=== PATIENT | male | born 1990 | race Asian ===

== ENCOUNTER 2018-07-03 20:45 | Emergency (ER) | payer OTHER ==
[2018-07-03] MEDS ORDERED: DEXAMETHASONE 10 MG/ML VIAL PO STA (21:00)
--- NOTE | 2018-07-03 21:02 | ED Physician Documentation ---
History of Present Illness - Stated complaint Stated Complaint: FEVER/HEADACHE - Chief complaint Chief Complaint: Neuro - History obtained from History obtained from: Patient - History of Present Illness Timing: Today - Additonal information Additional information: 28-year-old male in his usual state of health awoke this morning with a headache and developed fever and chills associated with this later in the day. He subsequently has developed some nausea he has not developed a cough. He does have generalized aches and pains as well. The last time he felt like this it was the flu. He has been around a number of families that have been ill with similar symptoms. Review of Systems Constitutional: reports: Fever, Chills, Myalgias, Fatigue Eyes: denies: Decreased vision Ears: denies: Ear pain Nose: denies: Rhinorrhea / runny nose, Congestion Throat: denies: Sore throat Cardiac: denies: Chest pain / pressure, Palpitations Respiratory: denies: Dyspnea, Cough GI: reports: Nausea. denies: Abdominal Pain, Vomiting, Constipation, Diarrhea : denies: Dysuria, Frequency Skin: denies: Rash Musculoskeletal: denies: Neck pain, Back pain, Extremity pain Neurologic: denies: Generalized weakness, Focal weakness, Numbness PD PAST MEDICAL HISTORY - Present Medications Home Medications: Ambulatory Orders Medication Instructions Recorded Confirmed No Known Home Medications 07/03/18 07/03/18 - Allergies Allergies/Adverse Reactions: Allergies Allergy/AdvReac Type Severity Reaction Status Date / Time No Known Drug Allergies Allergy Verified 07/03/18 20:52 PD ED PE NORMAL - Vitals Vital signs reviewed: Yes (febrile ) - HEENT HEENT: Atraumatic, PERRL, EOMI, Ears normal, Moist mucous membranes, Pharynx benign, Dentition benign - Neck Neck: Supple, no meningeal sign, No bony TTP - Cardiac Cardiac: RRR, No murmur - Respiratory Respiratory: No respiratory distress, Clear bilaterally - Abdomen Abdomen: Soft, Non tender - Back Back: No CVA TTP, No spinal TTP - Derm Derm: Normal color, Warm and dry, No rash - Extremities Extremities: No deformity, No edema, No calf tenderness / cord - Neuro Neuro: Alert and oriented X 3, 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, No motor deficit, No sensory deficit, Normal speech Eye Opening: Spontaneous Motor: Obeys Commands Verbal: Oriented GCS Score: 15 - Psych Psych: Normal mood, Normal affect Results - Vitals Vitals: Vital Signs - 24 hr 07/03/18 07/03/18 20:49 21:38 Temperature 37.8 C H Heart Rate 88 86 Respiratory 16 16 Rate Blood Pressure 122/82 H 120/80 O2 Saturation 98 100 Oxygen O2 Source Room air - Labs Labs: Laboratory Tests 07/03/18 21:10 Influenza A (Rapid) Negative Influenza B (Rapid) Negative PD MEDICAL DECISION MAKING - ED course Complexity details: reviewed results, re-evaluated patient, considered differential, d/w patient ED course: 28-year-old male with viral symptoms with headache and fever of a short duration has negative influenza swab. He is administered dexamethasone and given instructions on viral syndrome. Departure - Departure Disposition: 01 Home, Self Care Clinical Impression: Acute viral syndrome Condition: Stable Instructions: ED Viral Syndrome Follow-Up: GILBERT LEIJA MD [Primary Care Provider] - Discharge Date/Time: 07/03/18 21:38
[2018-07-03 21:39] VITALS: BP 120/80
== END 2018-07-03 21:38 | disposition home or self-care (01) ==
LOC: ED 20:45
DX: B34.9 Viral infection, unspecified (principal)
CPT/HCPCS: 87275; 87276; 99283

== ENCOUNTER 2018-12-05 16:52 | Emergency (ER) | payer OTHER ==
[2018-12-05 16:57] VITALS: BP 132/74
[2018-12-05] MEDS ORDERED: BUFFERED LIDOCAINE 10 ML SYRINGE SUBQ STA (17:02)
--- NOTE | 2018-12-05 17:04 | ED Physician Documentation ---
PD HPI ANIMAL BITE - Stated complaint Stated Complaint: dog bite - Chief complaint Chief Complaint: Laceration - History obtained from History obtained from: Patient, Family - History of Present Illness Location of injury(ies): Right hand Details of the event: Dog, Bite, Pet animal, Well appearing, Immunized, Provoked, Animal can be observed Timing - onset: Today Timing - duration: Minutes Timing - details: Abrupt onset, Still present Improved by: Rest, Immobilization Worsened by: Moving, Palpating Associated symptoms: No: Weakness, Numbness, Tingling, Swelling Contributing factors: No: Immunocompromised Similar symptoms before: Has not had sx before Recently seen: Not recently seen - Additional information Additional information: 28-year-old male was playing with his 1-year-old [employer] [place] puppy and he was playing tug of war when the dog bit the right hand and the patient states that he feels that he pulled his hand out of the dog's mouth tearing the tooth against the hand. He has a laceration in the web space between the third and fourth fingers on the right hand Review of Systems Constitutional: denies: Fever Respiratory: denies: Cough GI: denies: Vomiting Skin: denies: Rash Musculoskeletal: reports: Extremity pain. denies: Neck pain, Back pain, Joint swelling, Pain with weight bearing Neurologic: reports: Numbness (surrounding the area of the bite but not distally). denies: Generalized weakness, Focal weakness PD PAST MEDICAL HISTORY - Past Surgical History Past Surgical History: No - Present Medications Home Medications: Ambulatory Orders Medication Instructions Recorded Confirmed Amox/Clav 875/125 [Augmentin] 1 each PO Q12H #10 tablet 12/05/18 - Allergies Allergies/Adverse Reactions: Allergies Allergy/AdvReac Type Severity Reaction Status Date / Time No Known Drug Allergies Allergy Verified 12/05/18 16:57 - Social History Does the pt smoke?: Yes Smoking Status: Current every day smoker Does the pt drink ETOH?: Yes Does the pt have substance abuse?: No - Immunizations Immunizations are current?: Yes - POLST Patient has POLST: No PD ED PE NORMAL - Vitals Vital signs reviewed: Yes (normal ) - General General: Alert and oriented X 3, No acute distress, Well developed/nourished - HEENT HEENT: Atraumatic, PERRL - Respiratory Respiratory: No respiratory distress - Derm Derm: Normal color, Warm and dry, No rash - Extremities Extremities: No deformity, No edema, Other (deep laceration between the 3rd and 4th digits on the right hand ) Results - Vitals Vitals: Vital Signs - 24 hr 12/05/18 16:55 Temperature 36.8 C Heart Rate 72 Respiratory 20 Rate Blood Pressure 132/74 H O2 Saturation 99 Oxygen O2 Source Room air Procedures - Laceration (location) right hand Length in cm: 2 Wound type: Linear, Into subcut fat, Clean Neurovascular status: Sensory intact, Motor intact, Vascular intact Anesthesia: Lidocaine 1%, With bicarb Wound Preparation: Hibiclens, Irrigated copiously NS, Wound explored, To the base Skin layer closure: Nylon, Interrupted, Size #-0 - enter number (4-0), Sutures - enter # (3) Other: Patient tolerated well, No complications, Neurovascular intact, Dressing applied, Tetanus UTD Complexity: Simple PD MEDICAL DECISION MAKING - ED course Complexity details: considered differential, d/w patient, d/w family ED course: 28-year-old male who was playing tug of war with his [employer] [place] has been bitten in the hand and has a laceration to the webspace between the third and fourth digits. The wound is thoroughly cleaned out and loosely approximated with 3 sutures. The patient is administered Augmentin [address] him on a short course and he will have suture removal in 7 to 10 days. Departure - Departure Disposition: 01 Home, Self Care Clinical Impression: Dog bite of right hand Condition: Stable Instructions: ED Bite Dog, ED Laceration Hand Follow-Up: GILBERT LEIJA MD [Primary Care Provider] - Prescriptions: Amox/Clav 875/125 [Augmentin] 1 each PO Q12H #10 tablet
[2018-12-05] MEDS ORDERED: AMOX/CLAV 875 MG/125 MG TABLET PO STA (17:24)
== END 2018-12-05 17:49 | disposition home or self-care (01) ==
LOC: ED 16:52
DX: S61.451A Open bite of right hand, initial encounter (principal); W54.0XXA Bitten by dog, initial encounter; Y93.89 Activity, other specified; F17.200 Nicotine dependence, unspecified, uncomplicated
CPT/HCPCS: 12001; 99283; A9270